=== PATIENT | male | born 1995 | race African-American/Black ===

== ENCOUNTER 2024-03-10 14:42 | Emergency (ER) | payer OTHER ==
[~2024-03-10] VITALS: Ht 198.1 cm; Wt 113.6 kg
[2024-03-10 14:46] VITALS: TEMP 98.1
[2024-03-10] MEDS ORDERED: Ondansetron 4 MG/2 ML VIAL IV ONE (15:15)
[2024-03-10] MEDS ORDERED: NS 1,000 ML IV ONE (15:15)
[2024-03-10] MEDS ORDERED: Ketorolac 15 MG/ML VIAL IV ONE ×2 (15:15→16:45)
[2024-03-10 15:42] LABS: BASO # 0.1 K/mm3 (0.0-0.2); BASO % 0.6 % (0.0-2.0); EOS # 0.1 K/mm3 (0.0-0.7); EOS % 1.3 % (0.0-4.0); GRAN % 73.6 % (42.2-75.2); HEMATOCRIT 42.5 % (42.0-52.0); HEMOGLOBIN 14.6 g/dl (13.5-18.0); LYMPH # 1.7 K/mm3 (1.2-3.4); LYMPH % 17.3 % (20.0-51.0); MEAN CELL VOLUME 88 fl (80.0-100.0); MEAN CORPUSCULAR HEMOGLOBIN 30 pg (27-31); MEAN CORPUSCULAR HGB CONC 34 g/dl (33.0-37.0); MEAN PLATELET VOLUME 9.9 fl (7.4-10.4); MONO # 0.7 K/mm3 (0.1-0.6); PLATELET COUNT 241 K/mm3 (130-400); RED BLOOD COUNT 4.81 M/mm3 (4.20-5.60); REDCELL DISTRIBUTION WIDTH-CV 12.8 % (11.5-14.5)
[2024-03-10 16:18] LABS: ALBUMIN 4.6 g/dL (3.5-5.0); BILIRUBIN,TOTAL 0.8 mg/dL (0.2-1.2); C-REACTIVE PROTEIN 0.08 mg/dL (0.00-0.50); CALCIUM 9.9 mg/dL (8.4-10.2); CREATININE, serum 1.47 mg/dL (0.72-1.25); POTASSIUM 4.1 mEq/L (3.5-4.5); TOTAL PROTEIN 7.6 g/dl (6.2-8.1)
[2024-03-10 16:43] VITALS: BP 126/59; PULSE 52
== END 2024-03-10 16:43 | disposition home or self-care (01) ==
LOC: COL.ER 14:42
PROVIDERS: Emergency Medicine
DX: R11.2 Nausea with vomiting, unspecified (principal); T50.995A Adverse effect of other drugs, medicaments and biological substances, initial encounter; R10.13 Epigastric pain
CPT/HCPCS: J0780; J1885; J2405; J7030